=== PATIENT | male | born 1995 | race Hispanic/Latino ===

== ENCOUNTER 2021-12-04 11:44 | Emergency (ER) | payer MEDICAID, OTHER ==
[~2021-12-04] VITALS: Ht 165.1 cm; Wt 99.8 kg
[2021-12-04] MEDS ORDERED: ONDANSETRON 4MG INJ IVP ONE (12:30)
[2021-12-04] MEDS ORDERED: 0.9%NACL 1000ML 1,000 ML IV SCH (12:30)
[2021-12-04] MEDS ORDERED: ACETAMINOPHEN 500 MG TABLET PO ONE (12:30)
[2021-12-04 12:40] LABS: BASOPHILS % (AUTO) 0.5 % (0.0-5.0); EOSINOPHILS % (AUTO) 0.1 % (0.0-8.0); HEMATOCRIT 46.5 % (42-54); LYMPHOCYTES % (AUTO) 3.9 % (21.0-51.0); MEAN CORPUSCULAR HEMOGLOBIN 27.9 pg (27.0-33.0); MEAN CORPUSCULAR HGB CONC 33.8 g/dL (32.0-36.0); MEAN CORPUSCULAR VOLUME 82.7 fL (79-99); MONOCYTES % (AUTO) 6.2 % (3.0-13.0); PLATELET COUNT (AUTO) 448 K/uL (130-400); RED BLOOD CELL COUNT(AUTO) 5.62 MIL/uL (4.50-6.20); RED CELL DISTRIBUTION WIDTH 13.2 % (11.0-15.5); WHITE BLOOD COUNT (AUTO) 13.5 K/uL (4.8-10.8)
[2021-12-04 12:49] LABS: CREATININE 0.8 mg/dL (0.5-1.5); POTASSIUM 3.9 mmol/L (3.5-5.1)
[2021-12-04 12:54] LABS: ALBUMIN 4.3 g/dL (3.5-5.0); CRP QUANTITATIVE 29.4 mg/L (0.00-9.0); TOTAL PROTEIN, SERUM 8.5 g/dL (6.0-8.3)
[2021-12-04 12:58] LABS: APPEARANCE,URINE CLEAR (CLEAR); BILIRUBIN,URINE NEGATIVE (NEGATIVE); COLOR,URINE YELLOW (YELLOW); GLUCOSE, URINE (UA) NEGATIVE (NEGATIVE); KETONES,URINE NEGATIVE (NEGATIVE); LEUKOCYTE ESTERASE ,URINE NEGATIVE Leu/uL (NEGATIVE); NITRATE,URINE NEGATIVE (NEGATIVE); PH,URINE 5.5 (5.0-8.0); PROTEIN,URINE 50 mg/dL (NEGATIVE); UROBILINOGEN,URINE 0.2 mg/dL (0.2-1.0)
[2021-12-04] MEDS ORDERED: LIDOCAINE HCL 2% VISCOUS 15 ML UDCUP PO ONE (13:00)
[2021-12-04] MEDS ORDERED: DICYCLOMINE HCL 10 MG/5 ML ML PO ONE (13:00)
[2021-12-04] MEDS ORDERED: MAG/ALUM/SIMETH 30 ML UDCUP PO ONE (13:00)
[2021-12-04] MEDS ORDERED: FAMOTIDINE 20MG VIAL IV ONE (13:00)
[2021-12-04 13:27] LABS: MUCUS,URINE MANY LPF (None Seen); OTHER CASTS, URINE 2 /LPF (None Seen); SQUAMOUS EPITHELIAL CELL,UR RARE /HPF (0-2)
[2021-12-04] MEDS ORDERED: CEFTRIAXONE 1G VIAL IVP ONE (14:00)
[2021-12-04] MEDS ORDERED: ONDA4TAB10 PO (14:14)
[2021-12-04] MEDS ORDERED: CEPH500B PO (14:14)
[2021-12-04] MEDS ORDERED: CEFTRIAXONE 1G VIAL ONE (14:22)
[2021-12-04 14:32] VITALS: BP 137/82
== END 2021-12-04 14:32 | disposition home or self-care (01) ==
LOC: EDH 11:44
DX: N39.0 Urinary tract infection, site not specified (principal); K52.9 Noninfective gastroenteritis and colitis, unspecified; E86.0 Dehydration; Z20.822 Contact with and (suspected) exposure to COVID-19; E66.9 Obesity, unspecified; Z68.36 Body mass index [BMI] 36.0-36.9, adult
CPT/HCPCS: 99284; 96374; 96375; 87635; 96361; 80053; 83690; 85025; 87804 ×2; 86140; 81001; 36415; C9803; J3490; J7030; J0696; J2405

== ENCOUNTER 2023-02-23 16:08 | Emergency (ER) | payer BC ==
[~2023-02-23] VITALS: Ht 162.6 cm; Wt 97.5 kg
[~2023-02-23 16:08] MED LIST: CEPH500B PO; ONDA4TAB10 PO
[2023-02-23] MEDS ORDERED: ONDANSETRON 4MG INJ IVP ONE (17:00)
[2023-02-23] MEDS ORDERED: 0.9%NACL 1000ML 1,000 ML IV ONE (17:00)
[2023-02-23] MEDS ORDERED: IBUPROFEN 800 MG TAB PO ONE (17:00)
[2023-02-23] MEDS ORDERED: DiphenhydrAMINE HCL 50 MG/ML VIAL IV ONE (17:00)
[2023-02-23] MEDS ORDERED: KETOROLAC 15MG/ML VIAL (15MG/ML) IV ONE (17:00)
[2023-02-23 17:37] LABS: BASOPHILS # (AUTO) 0.12 K/uL (0.00-0.20); BASOPHILS % (AUTO) 1.2 % (0.0-5.0); EOSINOPHILS # (AUTO) 0.08 K/uL (0.00-0.70); EOSINOPHILS % (AUTO) 0.8 % (0.0-8.0); HEMATOCRIT 44.2 % (42-54); IMMATURE GRANULOCYTE ABSOLUTE 0.03 K/uL (0-1); LYMPHOCYTES # (AUTO) 2.2 K/uL (1.0-4.8); LYMPHOCYTES % (AUTO) 21.2 % (21.0-51.0); MEAN CORPUSCULAR HEMOGLOBIN 28.4 pg (27.0-33.0); MEAN CORPUSCULAR HGB CONC 34.4 g/dL (32.0-36.0); MEAN CORPUSCULAR VOLUME 82.5 fL (79-99); MONOCYTES # (AUTO) 0.6 K/uL (0.1-1.0); MONOCYTES % (AUTO) 5.9 % (3.0-13.0); NEUTROPHILS # (AUTO) 7.4 K/uL (1.8-7.7); NEUTROPHILS % (AUTO) 70.6 % (40.0-77.0); PLATELET COUNT (AUTO) 500 K/uL (130-400); RED BLOOD CELL COUNT(AUTO) 5.36 MIL/uL (4.50-6.20); RED CELL DISTRIBUTION WIDTH 12.9 % (11.0-15.5); WHITE BLOOD COUNT (AUTO) 10.4 K/uL (4.8-10.8)
[2023-02-23 17:45] LABS: CREATININE 0.8 mg/dL (0.5-1.5); POTASSIUM 4.1 mmol/L (3.5-5.1)
[2023-02-23 17:50] LABS: ALBUMIN 3.8 g/dL (3.5-5.0); BILIRUBIN,TOTAL 0.4 mg/dL (0.2-1.0); TOTAL PROTEIN, SERUM 8.4 g/dL (6.0-8.3)
[2023-02-23] MEDS ORDERED: AMOX-426 PO (18:09)
[2023-02-23 18:12] LABS: RAPID GROUP A STREP negative (NEGATIVE)
[2023-02-23 18:13] VITALS: BP 130/72; PULSE 74; RESP 18; O2SAT 98
[2023-02-23 18:14] LABS: INFLUENZA TYPE A Negative For Type A (NEGATIVE); INFLUENZA TYPE B Negative For Type B (NEGATIVE)
[2023-02-23 18:59] LABS: SARS-CoV-2, RNA, NAAT NEGATIVE SARS CoV-2 (NEGATIVE)
== END 2023-02-23 18:17 | disposition home or self-care (01) ==
LOC: EDH 16:08
DX: J32.9 Chronic sinusitis, unspecified (principal); E66.9 Obesity, unspecified; Z20.822 Contact with and (suspected) exposure to COVID-19; Z79.899 Other long term (current) drug therapy
CPT/HCPCS: 99284; 96374; 70450; 71045; 96375; 87635; 80053; 85025; 87880; 87804 ×2; 36415; J1200; J7030; J2405; J1885

== ENCOUNTER → 2024-04-21 | Emergency (ER) | payer BC ==
[~2024-04-21] MED LIST changes: +AMOX-426 PO; +ONDA-243 PO; -ONDA4TAB10 PO
--- NOTE | 2024-04-21 20:35 | NUR ---
PER REGISTRATION, PT DECIDED TO LEAVE.
== END ==
LOC: EDH 20:11
DX: M54.50 Low back pain, unspecified (principal); Z53.21 Procedure and treatment not carried out due to patient leaving prior to being seen by health care provider

== ENCOUNTER 2024-04-26 20:44 | Emergency (ER) | payer BC ==
[~2024-04-26] VITALS: Ht 162.6 cm; Wt 97.5 kg
--- NOTE | 2024-04-26 21:07 | ERN ---
ED Note History of Present Illness Stated Complaint: BACK AND GROIN PAIN Chief Complaint: Testicular Injury/Pain Time Seen by MD: 20:46 Dictation: This is a 29-year-old male who presented to the emergency room with complaints of lower back pain and right inguinal area pain which started on 04/21/2024. Apparently he and had sexual intercourse that morning after which throughout the day he developed pain on the right side of the testes and feels heaviness swelling. He also reports that it is very sensitive to touch on that side. No fever chills or rigors no unusual drainage. No bleeding or direct injury. Temperature 97.9 pulse 109 respirations 20 blood pressure 146/87 with a pulse oximetry of 98% on room air Allergies: Coded Allergies: No Known Allergies (Unverified Allergy, Unknown, 12/04/21) Home Meds Active Scripts Amoxicillin/Potassium Clav (Augmentin 500-125 Tablet) 500 Mg-125 Mg Tablet, 1 EACH PO Q12H for 7 Days, #1 TAB Prov:FARRUKH DYSON NP 02/23/23 Ondansetron (Ondansetron Odt) 4 Mg Tab.rapdis, 4 MG PO TIDP, #21 TAB Prov:MOISÉS BARFIELD 12/04/21 Cephalexin Monohydrate (Keflex) 500 Mg Cap, 500 MG PO TID for 7 Days, #21 CAP Prov:MOISÉS BARFIELD 12/04/21 Past Medical History Past Medical History: No Pertinent History Additional Past Medical Hx: Obesity Surgical History: None Family History: Negative Social History: Lives with family RN Note Reviewed/Agreed w/PFSH: Yes Review of System Dictation Constitutional: Negative for fever,chills, and weight loss Eyes: Negative for injury, pain,redness, and discharge ENT: Negative for injury,pain or swelling Cardiovascular: Negative for chest pain, palpitations, and edema Respiratory: Negative for shortness of breath, cough, and wheezing, Abdomen/GI: Negative for abdominal pain, nausea, vomiting, diarrhea, and co nstipation Back: Negative for injury and pain : Negative for injury, bleeding and discharge right testicular pain with a lower back pain MS/Extremity: Negative for injury and deformity Skin: Negative for rash, and discoloration Neuro: Negative for headache, weakness, numbness, tingling, and seizure Psych: Negative for suicide ideation, homicidal ideation, and hallucinations Initial Vital Sign VS Vital Signs Date Time Temp Pulse Resp B/P (MAP) Pulse Ox O2 Delivery O2 Flow Rate FiO2 04/26/24 20:45 97.9 109 20 146/87 99 Room Air 04/26/24 22:09 0 21 Physical Exam Dictation General: awake, alert, NAD Head/Face: Normocephalic, atraumatic Eyes: PERRL, EOMI, vision at baseline ENT: oral cavity clear, TMs clear, no signs of infection Neck: Trachea midline, supple, no nuchal rigidity Cardiovascular: RRR, normal S1/S2, No MRGs, no JVD Respiratory: CTAB, no respiratory distress, No rales or wheezes Abdomen: Soft, non-tender, non-distended, normal bowel sounds, no guarding or rebound. Skin: Warm, dry, normal turgor, no rash MS/Extremity: Pulses equal, no cyanosis, neurovascular intact, FROM Neuro: COAx4, GCS 15, strength 5/5, CN 2-12 intact, normal cerebellar exam, normal gait, Psych: Normal behavior, mood, and affect normal Extremities-trace edema without any palpable cords, Homans sign is negative Results (Laboratory/Radiology) Labs Reviewed?: Yes Ultrasound Comment: PATIENT: HOLLI CARRENO MR#: [id number] : 1995 SEX: M AGE: 29 LOCATION: [facility] ORDER 50 STATUS: REG ER REPORT#: [id number] SERVICE 49 REASON: PAIN, SWELLING, HEAVINESS ORDERING PHYSICIAN: BISHOP GUTIÉRREZ MD PROCEDURE: SCROTUM - US SCROTUM & CONTENTS US SCROTUM & CONTENTS HISTORY: Pain COMPARISON: None TECHNIQUE: Duplex scrotal ultrasound study was performed. FINDINGS: The right testes measures 4 x 3 x 3 cm. The left testes measures 4 x 2 x 3 cm. No evidence of intratesticular mass or abnormal calcification is seen. Normal flow is demonstrated in the testes and epididymides bilaterally. Small bilateral hydroceles are seen with right measuring 1.8 cm and left measuring 2 cm. IMPRESSION: 1. No evidence of intratesticular mass is seen. 2. Normal flow is demonstrated of both testes. DICTATED BY: SUKUMAR NICHOLE MD DATE: 04/26/242207 ELECTRONICALLY SIGNED BY: SUKUMAR NICHOLE MD DATE: 04/26/242212 ED Course ED Course Orders Procedure Category Date Status Time Us Scrotum & Contents US 04/26/24 Resulted 20:50 Vital Signs Date Time Temp Pulse Resp B/P (MAP) Pulse Ox O2 Delivery O2 Flow Rate FiO2 04/26/24 22:09 98.8 89 18 115/72 98 Room Air* 0 21 04/26/24 20:45 97.9 109 20 146/87 99 Room Air We will perform imaging and administer medications according to the patient's complaint. Once the results are available, will review and personally interpreted the labs to rule out any acute life-threatening emergency the trach require immediate intervention and treatment. I will then re-evaluate the patient after treatment and diagnostic exams have return to determine whether the patient requires any further testing, can safely be discharged home or need further admission to hospital for additional treatment and evaluation. Ultrasound of the scrotum in the testes showed normal size testes with no evidence of any intratesticular mass, no epididymitis. Very small bilateral hydroceles. Normal flow to both testes. I updated the patient on the ultrasound results and gave a referral to urologist Medical Decision Making MDM MDM: Differential diagnosis: Testicular retraction, musculoskeletal pain, orchitis, epididymitis, hematoma Rationale: Tests considered and ordered secondary to shared decision making include: Previous outside records reviewed: Old ER visits. Risk of complication and/or morbidity or mortality of patient management: None Medications-Per medication reconciliation Need for hospitalization: Patient does not meet criteria for hospitalization. Need for emergency major/minor surgery: No There are no social concerns with this patient. Prescription drug management Prescriptions will include symptomatic care Patient's prior external medical records from other ER visits were reviewed by me as indicated. Prior testing and results from previous visits were reviewed. Prior tests were taken into account with medical decision making and resource utilization, independent historian/historians were used to obtain complete medical history. I independently interpreted the test that were performed, results were reviewed by me and considered findings on radiology if ordered. Medical management and examination interpretation discussions were had by me with other qualified healthcare professionals as indicated for the patient's care. Problem List Problem List: (1) Right testicular pain (2) Bilateral hydrocele DX & DISP Disposition: Discharge Departure Impression: Primary Impression: Right testicular pain Additional Impression: Bilateral hydrocele Condition: Stable Additional Instructions: Patient and the caregiver have been informed of all the diagnostic tests and the imaging conducted during the today's visit to the emergency room and has verbalized understanding of the results I have personally reviewed and interpreted all diagnostic exams performed here in the ER today as well as the vital signs documented by the nursing staff. The patient is now being discharged to home and should follow up with the primary care physician or the specialist as directed by the ER staff. Follow-up with primary care provider in 1 to 2 days. Take medications as directed here in the emergency room. Okay to continue home medications unless otherwise discussed during your visit in the emergency room today. Return to your nearest emergency room if symptoms worsen or if there is no improvement. Call 911 if you need immediate assistance. Take Tylenol or Motrin over-the- counter as needed and if no contraindications are present. Increase oral hydration. A wound culture or urine culture was ordered here in the emergency room department please follow-up with primary care provider and advise them to get repeat ports from our facility. If you had any Tee wrap/splints that were applied here, please do not remove them until you see your primary care or specialty. Referrals: SELF,REFERRAL (PCP) FLOR AGUIRRE MD [facility],BISHOP Chavez MD Apr 26, 2024 21:07
[2024-04-26 22:09] VITALS: TEMP 98.8
--- NOTE | 2024-04-26 22:13 | HMCIMG ---
US SCROTUM & CONTENTS HISTORY: Pain COMPARISON: None TECHNIQUE: Duplex scrotal ultrasound study was performed. FINDINGS: The right testes measures 4 x 3 x 3 cm. The left testes measures 4 x 2 x 3 cm. No evidence of intratesticular mass or abnormal calcification is seen. Normal flow is demonstrated in the testes and epididymides bilaterally. Small bilateral hydroceles are seen with right measuring 1.8 cm and left measuring 2 cm. IMPRESSION: 1. No evidence of intratesticular mass is seen. 2. Normal flow is demonstrated of both testes.
[2024-04-26 23:05] VITALS: BP 109/66; PULSE 79; RESP 18; O2SAT 98
== END 2024-04-26 23:24 | disposition home or self-care (01) ==
LOC: EDH 20:44
DX: N43.3 Hydrocele, unspecified (principal); E66.9 Obesity, unspecified; Z79.899 Other long term (current) drug therapy
CPT/HCPCS: 76870; 99284